=== PATIENT | male | born 1985 | race Two or more races ===

== ENCOUNTER 2020-09-02 15:38 | Emergency (ER) | payer OTHER ==
[~2020-09-02] VITALS: Ht 165.1 cm; Wt 73.9 kg
[2020-09-02] MEDS ORDERED: DOLOGEN CAPLET1 EACH PO (17:26)
[2020-09-02] MEDS ORDERED: PROAIR RESPICL90 MCG IH (17:26)
[2020-09-02] MEDS ORDERED: MEDROLPACK PO (17:26)
[2020-09-02] MEDS ORDERED: ZITHROMAX500 MG PO (17:26)
== END 2020-09-02 17:30 | disposition home or self-care (01) ==
LOC: ER 15:38
DX: U07.1 COVID-19 (principal); B34.9 Viral infection, unspecified